=== PATIENT | male | born 1965 | race African-American/Black ===

== ENCOUNTER 2016-12-08 14:04 | Emergency (ER) | payer OTHER ==
[~2016-12-08] VITALS: Ht 177.8 cm; Wt 54.4 kg
--- NOTE | 2016-12-08 14:14 | Emergency Room Report ---
History of Present Illness General Chief Complaint: Chest Pain Source: Patient Present Illness HPI The patient was being arrested for outstanding traffic once. At that time he started complaining about chest pain. He feels pressure in his chest and weakness. He was given aspirin and one nitroglycerin. His blood pressure dropped to 90 when he got the nitroglycerin. He denies having pain at this time but feels feels weak and "out of it". He drank one beer earlier. He does smoke cigarettes he denies any cardiac history. No fever, chills, cough, SOB, sore throat, NVD, headache, rashes, joint pain, calf pain. Allergies: Coded Allergies: ACETAMINOPHEN (Verified Allergy, Intermediate, 12/08/16) Patient History Past Medical History: see triage record Social History: Reports: alcohol use, smoking Social History Narrative was being arrested Reviewed Nursing Documentation: PMH: Agreed, PSxH: Agreed Nursing Documentation-PMH Hx Cardiac Problems: No Hx Hypertension: No Hx Pacemaker: No Hx Asthma: Yes Hx Diabetes: No Hx Cancer: No Hx Gastrointestinal Problems: No Hx Dialysis: No History Of Psychiatric Problem: No Hx Neurological Problems: No Hx Cerebrovascular Accident: No Hx Seizures: No Review of Systems All Other Systems: negative except mentioned in HPI Physical Exam Vital Signs Date Time Temp Pulse Resp B/P Pulse Ox O2 Delivery O2 Flow Rate FiO2 12/08/16 13:54 98.1 60 16 90/60 98 Room Air Sp02 EP Interpretation: reviewed, normal General Appearance: well appearing, no apparent distress, GCS 15 Head: normocephalic Eyes: bilateral eye PERRL, bilateral eye Scleral Injection ENT: moist mucus membranes Neck: supple Respiratory: lungs clear, normal breath sounds Cardiovascular #1: regular rate, rhythm Cardiovascular #2: 2+ radial (R) Gastrointestinal: normal inspection, normal bowel sounds, non tender, no mass, non-distended Musculoskeletal: back normal, gait/station normal, normal range of motion Neurologic: alert, oriented x3 Psychiatric: mood/affect normal Skin: normal inspection, warm/dry Medical Decision Making Diagnostic Impression: Primary Impression: Chest pain Qualified Codes: R07.9 - Chest pain, unspecified Additional Impression: Cocaine abuse ER Course Patient presents with chest pain. Ddx; AMI, ACS, GERD, anxiety, chest wall pain amongst others. Emergent evaluation with labs, EKG, CXR. Treatment in field led to patient being without pain, but weakened and with lowered BP after nitrates. Will give IV hydration. EKG normal - No AMI. Labs with normal troponin and + cocaine. Patient improved with treatment. No medical emergency at this time. Situation in ED led to patient being confronted by security (not return to treatment area). Patient upset about this. Nearly signing out AMA. Patient stable for outpatient observation and treatment. Laboratory Tests Test 12/08/16 14:58 12/08/16 17:47 White Blood Count 5.3 K/UL (4.8-10.8) Red Blood Count 4.71 M/UL (4.70-6.10) Hemoglobin 16.0 G/DL (14.2-18.0) Hematocrit 46.5 % (42.0-52.0) Mean Corpuscular Volume 99 FL (80-99) Mean Corpuscular Hemoglobin 33.9 PG (27.0-31.0) H Mean Corpuscular Hemoglobin Concent 34.3 G/DL (32.0-36.0) Red Cell Distribution Width 11.1 % (11.6-14.8) L Platelet Count 266 K/UL (150-450) Mean Platelet Volume 6.1 FL (6.5-10.1) L Neutrophils (%) (Auto) 55.1 % (45.0-75.0) Lymphocytes (%) (Auto) 37.1 % (20.0-45.0) Monocytes (%) (Auto) 4.8 % (1.0-10.0) Eosinophils (%) (Auto) 1.6 % (0.0-3.0) Basophils (%) (Auto) 1.5 % (0.0-2.0) Prothrombin Time 10.4 SEC (9.30-11.50) Prothrombin Time INR 1.0 (0.9-1.1) PTT 37 SEC (23-33) H Sodium Level 139 mEQ/L (135-145) Potassium Level 4.7 mEQ/L (3.4-4.9) Chloride Level 100 mEQ/L (98-107) Carbon Dioxide Level 22 mEQ/L (20-30) Anion Gap 17 (5-15) H Blood Urea Nitrogen 9 mg/dL (7-23) Creatinine 1.2 mg/dL (0.7-1.2) Estimate Glomerular Filtration Rate > 60 mL/min (>60) Glucose Level 94 mg/dL (74-106) Calcium Level 9.2 mg/dL (8.6-10.2) Total Bilirubin 0.4 mg/dL (0.0-1.2) Aspartate Amino Transferase (AST) 25 U/L (5-40) Alanine Aminotransferase (ALT) 21 U/L (3-41) Alkaline Phosphatase 65 U/L (40-129) Total Creatine Kinase 227 U/L (38-174) H Troponin I < 0.30 ng/mL (<=0.30) Pro-B-Type Natriuretic Peptide 14 pg/mL (0-125) Total Protein 6.9 g/dL (6.6-8.7) Albumin 4.0 g/dL (3.5-5.2) Globulin 2.9 g/dL Albumin/Globulin Ratio 1.3 (1.0-2.7) Serum Alcohol < 10 mg/dL Urine Color Pale yellow Urine Appearance Clear Urine pH 5 (4.5-8.0) Urine Specific [place] 1.020 (1.005-1.035) Urine Protein Negative (NEGATIVE) Urine Glucose (UA) Negative (NEGATIVE) Urine Ketones Negative (NEGATIVE) Urine Occult Blood Negative (NEGATIVE) Urine Nitrite Negative (NEGATIVE) Urine Bilirubin Negative (NEGATIVE) Urine Urobilinogen Normal MG/DL (0.0-1.0) Urine Leukocyte Esterase Negative (NEGATIVE) Urine Opiates Screen Negative (NEGATIVE) Urine Barbiturates Screen Negative (NEGATIVE) Phencyclidine (PCP) Screen Negative (NEGATIVE) Urine Amphetamines Screen Negative (NEGATIVE) Urine Benzodiazepines Screen Negative (NEGATIVE) Urine Cocaine Screen Positive (NEGATIVE) H Urine Marijuana (THC) Screen Negative (NEGATIVE) EKG Diagnostic Results Rate: normal Rhythm: NSR ST Segments: no acute changes Rhythm Strip Diag. Results EP Interpretation: yes Rhythm: NSR, no PVC's, no ectopy Chest X-Ray Diagnostic Results EP Interpretation: Yes Findings: no consolidation, no effusion, no pneumothorax, no acute cardiopulmonary disease Number of Views: 1 Last Vital Signs Date Time Temp Pulse Resp B/P Pulse Ox O2 Delivery O2 Flow Rate FiO2 12/08/16 18:08 98.1 72 15 126/74 99 Room Air Status: improved Disposition: HOME, SELF-CARE Condition: Improved Fabián Scott M.D. Dec 08, 2016 14:14
[2016-12-08 15:20] LABS: BASOPHILS % (AUTO) 1.5 % (0.0-2.0); EOSINOPHILS % (AUTO) 1.6 % (0.0-3.0); LYMPHOCYTES % (AUTO) 37.1 % (20.0-45.0); MEAN CORPUSCULAR HEMOGLOBIN 33.9 PG (27.0-31.0); MEAN CORPUSCULAR HGB CONC 34.3 G/DL (32.0-36.0); MEAN CORPUSCULAR VOLUME 99 FL (80-99); MEAN PLATELET VOLUME 6.1 FL (6.5-10.1); MONOCYTES % (AUTO) 4.8 % (1.0-10.0); NEUTROPHILS % (AUTO) 55.1 % (45.0-75.0); PLATELET COUNT 266 K/UL (150-450); RED BLOOD COUNT 4.71 M/UL (4.70-6.10); RED CELL DISTRIBUTION WIDTH 11.1 % (11.6-14.8); WHITE BLOOD COUNT 5.3 K/UL (4.8-10.8)
[2016-12-08 15:21] VITALS: BP 122/77
[2016-12-08 15:24] LABS: PROTHROMBIN TIME 10.4 SEC (9.30-11.50)
--- NOTE | 2016-12-08 15:26 | Diagnostic Imaging Report ---
Indication: Chest Pain Comparison: None A single view chest radiograph was obtained. Findings: Cardiomediastinal appearance is within normal limits for age. Pulmonary vascularity is appropriate. The diaphragmatic contour is smooth and costophrenic angles are sharp. No pleural effusions are identified. Endplate spurs noted throughout the thoracic spine. Impression: No acute findings
[2016-12-08 15:34] LABS: ALANINE AMINOTRANSFERASE 21 U/L (3-41); ALBUMIN/GLOBULIN RATIO 1.3 (1.0-2.7); ALCOHOL < 10 mg/dL; ANION GAP 17 (5-15); ASPARTATE AMINO TRANSFERASE 25 U/L (5-40); CALCIUM 9.2 mg/dL (8.6-10.2); CARBON DIOXIDE 22 mEQ/L (20-30); CHLORIDE 100 mEQ/L (98-107); CREATININE 1.2 mg/dL (0.7-1.2); GLOMERULAR FILTRATION RATE > 60 mL/min (>60); HEMOLYSIS 78; POTASSIUM 4.7 mEQ/L (3.4-4.9); SODIUM 139 mEQ/L (135-145); TOTAL PROTEIN 6.9 g/dL (6.6-8.7); TROPONIN I < 0.30 ng/mL (<=0.30)
[2016-12-08 17:47] VITALS: BP 126/74
[2016-12-08 18:08] VITALS: BP 126/74
[2016-12-08 18:13] LABS: APPEARANCE,URINE CLEAR; KETONES,URINE NEGATIVE (NEGATIVE); LEUKOCYTE ESTERASE ,URINE NEGATIVE (NEGATIVE); NITRITE,URINE NEGATIVE (NEGATIVE); PH,URINE 5 (4.5-8.0); PROTEIN,URINE NEGATIVE (NEGATIVE); UROBILINOGEN,URINE NORMAL MG/DL (0.0-1.0)
--- NOTE | 2016-12-11 15:07 | Cardiology Report ---
APPROVED REPORT EKG Measurement Heart [id number] Normal sinus rhythm Normal ECG
== END 2016-12-08 18:10 | disposition home or self-care (01) ==
LOC: EDBD 14:04 → EMR 14:20
DX: R07.89 Other chest pain (principal); Z88.6 Allergy status to analgesic agent; F17.200 Nicotine dependence, unspecified, uncomplicated; J45.909 Unspecified asthma, uncomplicated
CPT/HCPCS: 36415; 71010; 80053; 80300; 80329; 81003; 82550; 83880; 84484; 85025; 85610; 85730; 93005; 96360

== ENCOUNTER 2020-04-06 13:19 | Emergency (ER) | payer MEDICAID, OTHER ==
[~2020-04-06] VITALS: Ht 182.9 cm; Wt 115.7 kg
--- NOTE | 2020-04-06 13:40 | NUR ---
ED Nurse Note:pt. came with c/o abdominal pain diahrrea for 2 days, pt. is A/Ox4, VSS,
[2020-04-06] MEDS ORDERED: Omnipaque-300 100ml vial INJ PRN (13:45)
[2020-04-06] MEDS ORDERED: Ketorolac 30mg Inj IV ONE (13:45)
[2020-04-06 14:15] LABS: BASOPHILS % (AUTO) 1.3 % (0.0-2.0); EOSINOPHILS % (AUTO) 1.9 % (0.0-3.0); HEMATOCRIT 44.8 % (42.0-52.0); HEMOGLOBIN 14.7 G/DL (14.2-18.0); LYMPHOCYTES % (AUTO) 35.2 % (20.0-45.0); MEAN CORPUSCULAR VOLUME 100 FL (80-99); MONOCYTES % (AUTO) 9.8 % (1.0-10.0); NEUTROPHILS % (AUTO) 51.8 % (45.0-75.0); PLATELET COUNT 212 K/UL (150-450); RED BLOOD COUNT 4.46 M/UL (4.70-6.10); RED CELL DISTRIBUTION WIDTH 11.8 % (11.6-14.8); WHITE BLOOD COUNT 7.9 K/UL (4.8-10.8)
[2020-04-06 14:22] LABS: APPEARANCE,URINE CLEAR; BILIRUBIN, URINE NEGATIVE (NEGATIVE); COLOR,URINE PALE YELLOW; GLUCOSE, URINE (UA) NEGATIVE (NEGATIVE); KETONES,URINE NEGATIVE (NEGATIVE); LEUKOCYTE ESTERASE ,URINE NEGATIVE (NEGATIVE); NITRITE,URINE NEGATIVE (NEGATIVE); PH,URINE 6 (4.5-8.0); PROTEIN,URINE NEGATIVE (NEGATIVE); UROBILINOGEN,URINE NORMAL MG/DL (0.0-1.0)
[2020-04-06 14:34] LABS: ALANINE AMINOTRANSFERASE 40 U/L (12-78); ALBUMIN 3.6 G/DL (3.4-5.0); ALKALINE PHOSPHATASE 68 U/L (46-116); ANION GAP 5 mmol/L (5-15); ASPARTATE AMINO TRANSFERASE 30 U/L (15-37); BILIRUBIN,TOTAL 0.6 MG/DL (0.2-1.0); BLOOD UREA NITROGEN 14 mg/dL (7-18); CALCIUM 8.7 MG/DL (8.5-10.1); CARBON DIOXIDE 25 MMOL/L (21-32); CHLORIDE 101 MMOL/L (98-107); CREATININE 1.3 MG/DL (0.55-1.30); POTASSIUM 3.5 MMOL/L (3.5-5.1); SODIUM 130 MMOL/L (136-145)
--- NOTE | 2020-04-06 15:00 | NUR ---
ED Nurse Note:pt. had abdominal CT scan done
[2020-04-06 15:15] VITALS: BP 103/65
--- NOTE | 2020-04-06 15:17 | Diagnostic Imaging Report ---
EXAM: XR Chest, 1 View CLINICAL HISTORY: PAIN TECHNIQUE: Frontal view of the chest. COMPARISON: 12/08/16. FINDINGS: Lungs: Prominent central vascular markings, likely technical in nature. No clear consolidation. Pleural space: Unremarkable. No pneumothorax. Heart: Unremarkable. No cardiomegaly. Mediastinum: Unremarkable. Bones/joints: Unremarkable. IMPRESSION: No clear evidence of acute pulmonary disease.
--- NOTE | 2020-04-06 15:29 | Emergency Room Report ---
History of Present Illness General Chief Complaint: Abdominal Pain Source: Patient Present Illness HPI 54-year-old male with no significant past medical history here complaining of diffuse abdominal pain and multiple bouts of nonbloody diarrhea and nonbloody emesis after he had a mix of seafood last night. Patient reports that people who also ate the same fish last night presented with similar symptoms. Denies any fever and chills, cough and congestion, shortness of breath, loss of taste or smell. Patient has a history of tobacco smoke. Also admits to smoking marijuana. Denies other drug use. Does report that he had alcohol last night. Denies any recent travel. Has not taken medication for symptom relief. Reports that the same thing happened to him years ago after he had the same mix of seafood. No guarding is noted upon palpation of the abdomen. Denies any urinary symptoms. Allergies: Coded Allergies: ACETAMINOPHEN (Verified Allergy, Intermediate, 12/08/16) COVID-19 Screening Contact w/high risk pt: No Recent Travel to affected area: No Experienced COVID-19 symptoms?: No COVID-19 Testing performed PROCEDURES RN: Yes COVID-19 Screening: Negative COVID-19 COVID-19 Testing [facility] Patient History Past Medical History: see triage record Past Surgical History: none Pertinent Family History: none Immunizations: UTD Reviewed Nursing Documentation: PMH: Agreed; PSxH: Agreed Nursing Documentation-PMH Hx Cardiac Problems: No Hx Hypertension: No Hx Pacemaker: No Hx Asthma: Yes Hx Diabetes: No Hx Cancer: No Hx Gastrointestinal Problems: No Hx Dialysis: No Hx Neurological Problems: No Hx Cerebrovascular Accident: No Hx Seizures: No Review of Systems All Other Systems: negative except mentioned in HPI Physical Exam Vital Signs Date Time Temp Pulse Resp B/P (MAP) Pulse Ox O2 Delivery O2 Flow Rate FiO2 04/06/20 13:32 98.4 80 16 118/75 (89) 93 Room Air Sp02 EP Interpretation: reviewed, normal General Appearance: no apparent distress, alert, GCS 15, non-toxic Head: normocephalic, atraumatic Eyes: bilateral eye normal inspection, bilateral eye PERRL ENT: hearing grossly normal, normal pharynx, no angioedema, normal voice Neck: full range of motion, supple/symm/no masses Respiratory: chest non-tender, lungs clear, normal breath sounds, no rhonchi, no respiratory distress, no retraction, no wheezing, speaking full sentences Cardiovascular #1: regular rate, rhythm, no edema Gastrointestinal: normal bowel sounds, non tender, soft, no mass, no organomegaly, no peritonitis, no bruit, non-distended, no guarding, no hernia, no pulsatile mass, no rebound Rectal: deferred Genitourinary: no CVA tenderness Musculoskeletal: back normal, no calf tenderness Neurologic: alert, motor strength/tone normal, oriented x3, sensory intact, responsive, speech normal Psychiatric: judgement/insight normal, memory normal, mood/affect normal, no suicidal/homicidal ideation Skin: no rash Lymphatic: no adenopathy Medical Decision Making PA Attestation All diagnoses and treatment plans were reviewed and discussed with my supervising physician Dr. Scott Diagnostic Impression: Primary Impression: Abdominal pain Additional Impressions: Hiatal hernia Cocaine abuse ER Course 54-year-old male with no significant past medical history here complaining of diffuse abdominal pain and multiple bouts of nonbloody diarrhea and nonbloody emesis after he had a mix of seafood last night. Patient reports that people who also ate the same fish last night presented with similar symptoms. Denies any fever and chills, cough and congestion, shortness of breath, loss of taste or smell. Patient has a history of tobacco smoke. Also admits to smoking marijuana. Denies other drug use. Does report that he had alcohol last night. Denies any recent travel. Has not taken medication for symptom relief. Reports that the same thing happened to him years ago after he had the same mix of seafood. No guarding is noted upon palpation of the abdomen. Denies any urinary symptoms. Ddx considered but are not limited to: appendicitis, cholecystis, gastritis, gastroenteritis, UTI, pyelonephritis, SBO, diverticulitis, influenza with GI manifestation, NM, gastroenteritis, pancreatitis Vital signs: are WNL, pt. is afebrile H&PE are most consistent with: Cocaine abuse, acute gastroenteritis, abdominal pain, hiatal hernia ORDERS: abdominal CT, abdominal pain set, EKG, troponin , Zofran, omeprazole, Tylenol, dicyclomine ED INTERVENTIONS: NS bolus, Toradol, Zofran, Pepcid DISCHARGE: At this time pt. is stable for d/c to home. Will provide printed patient care instructions, and any necessary prescriptions. Care plan and follow up instructions have been discussed with the patient prior to discharge. Take medication as directed, follow-up with your primary care provider, increase oral hydration, keep a brat diet, avoid smoking cocaine, if worsening symptoms return to the emergency room EKG Diagnostic Results Rate: normal Rhythm: NSR ST Segments: no acute changes Other Impression No acute ST changes Chest X-Ray Diagnostic Results Chest X-Ray Diagnostic Results : Chest X-Ray Ordered: Yes # of Views/Limited/Complete: 1 View Indication: Other EP Interpretation: Yes PA Xray: Interpretation reviewed, by supervising MD, and agrees with findings. Interpretation: no consolidation, no effusion, no pneumothorax Impression: No acute disease Electronically Signed by: Danielle Beck PA-C CT/MRI/US Diagnostic Results CT/MRI/US Diagnostic Results : Imaging Test Ordered: CT abdomen pelvis with contrast Last Vital Signs Date Time Temp Pulse Resp B/P (MAP) Pulse Ox O2 Delivery O2 Flow Rate FiO2 7/5/20 15:15 98.4 81 16 103/65 92 Room Air Disposition: HOME, SELF-CARE Condition: Stable Referrals: [facility]ERR[facility] (PCP) Patient Instructions: Abdominal Pain, Adult, Hiatal Hernia, Stimulant Use Disorder-Cocaine Additional Instructions: Take medication as directed, follow-up with your primary care provider, increase oral hydration, keep a brat diet, avoid smoking cocaine, if worsening symptoms return to the emergency room Danielle Garcia Apr 06, 2020 15:29
--- NOTE | 2020-04-06 15:46 | Diagnostic Imaging Report ---
EXAM: CT Abdomen and Pelvis With Intravenous Contrast CLINICAL HISTORY: PAIN TECHNIQUE: Axial computed tomography images of the abdomen and pelvis with intravenous contrast. CTDI is 16.5 mGy and DLP is 886.9 mGy-cm. One or more of the following dose reduction techniques were used: automated exposure control, adjustment of the mA and/or kV according to patient size, use of iterative reconstruction technique. COMPARISON: No relevant prior studies available. FINDINGS: The lung bases demonstrate no acute infiltrate. The liver, biliary tree, pancreas, spleen, kidneys, and adrenal glands are within normal limits. There is a moderate sized sliding-type hiatal hernia. The rectum and distal sigmoid colon are distended by inspissated stool. Correlate for impaction. No small bowel obstruction. No perforation. The appendix is unremarkable. Minimal right iliac atherosclerosis. No abdominal aortic aneurysm. Small fatty right inguinal hernia. Fatty hypertrophy of the left spermatic cord, not clearly herniated abdominal contents. Tiny fatty periumbilical hernia. Thoracolumbar spondylosis. Grade 1 L4 anterolisthesis due to facet arthropathy. No acute fracture. IMPRESSION: Rectosigmoid distention by inspissated stool. Correlate for impaction. Small fatty umbilical and right inguinal hernias. Moderate hiatal hernia. Incidental findings as above.
[2020-04-06] MEDS ORDERED: OMEPRAZOLE20 M3 ORAL (16:02)
[2020-04-06] MEDS ORDERED: DICYCLOMINE HCL10 MG ORAL (16:02)
[2020-04-06] MEDS ORDERED: ZOFRAN4 M1 ORAL (16:02)
[2020-04-06] MEDS ORDERED: TYLENOL EXTRA500 MG ORAL (16:02)
[2020-04-06 16:19] VITALS: BP 103/65
--- NOTE | 2020-04-06 16:20 | NUR ---
ER DISCHARGE NOTE: Patient is cleared to be discharged per ERMD, pt is aox4, on room air, with stable vital signs. pt was given dc and prescription instructions, pt was able to verbalize understanding, pt id band and iv site removed without complications. pt is able to ambulate with steady gait. pt took all belongings.
== END 2020-04-06 16:28 | disposition home or self-care (01) ==
LOC: EMR 14:09
DX: R10.9 Unspecified abdominal pain (principal); K44.9 Diaphragmatic hernia without obstruction or gangrene; F14.10 Cocaine abuse, uncomplicated; Z88.6 Allergy status to analgesic agent; Z87.891 Personal history of nicotine dependence; K42.9 Umbilical hernia without obstruction or gangrene; K40.90 Unilateral inguinal hernia, without obstruction or gangrene, not specified as recurrent; M47.815 Spondylosis without myelopathy or radiculopathy, thoracolumbar region
CPT/HCPCS: 36415; 71045; 74177; 80053; 80307; 81003; 83690; 83880; 84484; 85025; 85610; 85730; 93005; 96361; 96374; 96375; G0480; J1885; J2405; J7030; Q9967; S0028; Z7502; 99284